=== PATIENT | female | born 2005 | race Caucasian/White ===

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

== ENCOUNTER 2024-08-20 18:47 | Emergency (ER) | payer MEDICAID, SELFPAY ==
[2024-08-20 19:00] VITALS: BP 132/88; PULSE 90; RESP 18; TEMP 36.6; O2SAT 98; BMI 55.6
--- NOTE | 2024-08-20 19:18 | ED_ITS ---
Discharge Plan Disposition Patient Disposition: Home, Self-Care Condition: Good Prescriptions Prescriptions: New sulfamethoxazole-trimethoprim [Bactrim DS] 800-160 mg tablet 1 tab PO Q12H Qty: 20 0RF cephalexin 500 mg capsule 500 mg PO QID 10 Days Qty: 40 0RF mupirocin 2 % ointment 1 applic topical TID 10 Days Qty: 22 0RF Rx Instructions: apply around toenail as prescribed Referrals Follow up/Referrals: Provider,Referral, MD [Primary Care Provider] - See instructions Activity Restrictions/Add. Instructions Additional Instructions/Restrictions: Soak foot in warm water and epson salt 3-4 times daily Use topical ointment as prescribed Take oral antibiotics as prescribed Follow up with your Family Doctor and/or Podiatry for furhter evaluation and treatment Clinical Impressions Clinical Impression: Paronychia Instructions Patient Instructions: Trimethoprim/Sulfamethoxazole (Alternative Therapy), Cephalexin, DI for Paronychia, Paronychia Print Language Print Language: Ukrainian Discharge ED Provider: Chantal Ray [facility] [place] HPI General Stated complaint: left index toe red and swollen,painful Mode of Arrival: Ambulatory Source of Information: Patient Limitations: No Limitations Time Seen by Provider: 08/20/24 19:19 Description of Symptoms (Recalled from Triage Doc. by RN): PATIENT C/O REDNESS AND SWELLING TO LEFT SECOND TOE X 2 DAYS HEENT Symptoms (Recalled from RN notes): No Resp Symptoms (Recalled from RN notes): No Skin Symptoms (Recalled from RN notes): Yes MS Symptoms (Recalled from RN notes): No Functional Status (Recalled from RN notes): WNL History of Present Illness Provider Complaint: Patient states that she has been having redness and swelling around the nail on her left second toe States today she noticed the redness was starting to spread down her toe and she was concerned with infection so she came in to get it checked Related Data Previous Rx's ?Medication ?Instructions ?Recorded cephalexin 500 mg capsule 500 mg PO QID 10 days #40 caps 08/20/24 mupirocin 2 % topical ointment 1 applic topical TID 10 days #22 08/20/24 grams sulfamethoxazole 800 1 tab PO Q12H #20 tabs 08/20/24 mg-trimethoprim 160 mg tablet (Bactrim DS) Allergies Allergy/AdvReac Type Severity Reaction Status Date / Time No Known Allergies Allergy Verified 12/16/20 17:58 Worker's Comp Is this a Worker's Comp case?: No [facility] Disclaimer: The information contained in this section may have been updated after the patient was seen, as this information can be updated by other users. Social History Smoking Status: Current every day smoker tobacco type: e-cigarettes second hand exposure: No alcohol intake: never current occupational status: student Travel in the last 8 weeks: None ROS Obtained: Yes All systems reviewed & no additional complaints except as documented and Yes Systems reviewed as appropriate & no additional complaints except as documented Constitutional Constitutional: Reports system reviewed and no additional complaints, except as documented and Reports as per HPI Cardiovascular Cardiovascular: Reports system reviewed and no additional complaints, except as documented and Reports as per HPI Respiratory Respiratory: Reports system reviewed and no additional complaints, except as documented and Reports as per HPI Gastrointestinal Gastrointestingal: Reports system reviewed and no additional complaints, except as documented and as per HPI Musculoskeletal Musculoskeletal: Reports system reviewed and no additional complaints, except as documented and Reports as per HPI Integumentary/Breasts Skin/Breast: Reports system reviewed and no additional complaints, except as documented, Reports as per HPI and Reports other (redness and swelling around toenail on left second toe) Physical Exam General General appearance: alert and in no apparent distress ENT ENT exam: Present mucous membranes moist Chest Chest inspection: Present normal inspection and symmetric chest wall rise Respiratory Respiratory exam: Present normal lung sounds bilaterally; Absent respiratory distress or wheezes Cardiovascular Cardiovascular exam: Present regular rate, normal rhythm and normal heart sounds Expanded Lower Extremity Exam Left: Foot/toe exam: Present erythema Top foot image: 2 1. redness noted around toenail appears like infected paronychia with redness starting down toe, culture obtained and sent to lab Neurological Exam Neurological exam: Present alert, oriented X3 and normal gait Medical Decision Making Medical Records Screening: Per USPSTF and CDC recommendations, given the prevalence of disease in our region, it is our hospital?s policy to screen for HIV and viral Hepatitis for all patients aged 18 and over and those with ongoing risk factors. Freddy Inquiry Pt receiving controlled substance: No Freddy was queried for this patient: No Vital Signs: 08/20/24 19:00 Temperature 97.9 F Temperature Source Oral Pulse Rate [Left Brachial] 90 Respiratory Rate 18 Blood Pressure [Left Arm] 132/88 Blood Pressure Mean [Left Arm] 102 Blood Pressure Source [Left Arm] Automatic Cuff Blood Pressure Position [Left Arm] Sitting 02 Sat by Pulse Oximetry 98 Oxygen Delivery Method Room Air
[2024-08-20 19:31] VITALS: BP 132/88; PULSE 90; RESP 18; TEMP 36.6; O2SAT 98
== END 2024-08-20 19:33 | disposition home or self-care (01) ==
PROVIDERS: Emergency Provider Nurse Practitioner
DX: L03.032 Cellulitis of left toe (principal); M79.675 Pain in left toe(s); R22.42 Localized swelling, mass and lump, left lower limb
CPT/HCPCS: 87070; 87077; 87186; 87205; 99212; G0381

== ENCOUNTER 2025-03-27 11:04 | Outpatient (CLI) | payer MEDICAID, SELFPAY ==
[2025-03-27 11:16] LABS: Lyme Ab IgM CIA ND; Lyme IgG CIA ND
--- OUTSIDE RECORDS SUMMARY | 2025-03-27 13:08 | XMS_ITS | Clinical Summary ---
Author Organization [facility] Address [address] [place] [address] Care Team Providers Care Senior Receptionist Name Role Phone Manjinder Banda MD Primary Care Provider Allergies No known active allergies Medications No known medications Active Problems Problem Noted Date Diagnosed Date Body mass index, pediatric, greater than or equal to 95th percentile for age 0704/25/2024 Other instability, right ankle 02/02/2024 Other synovitis and tenosynovitis, right ankle a nd foot 02/02/2024 Spontaneous rupture of flexor tendons, right low er leg 01/24/2024 Other instability, left ankle 01/09/2024 Myopia, bilateral 07/13/2023 Regular astigmatism, bilateral 07/13/2023 Irregular menstruation, unspecified 05/19/2023 Polycystic ovarian syndrome 05/19/2023 Lactose intolerance 05/04/2020 Attention deficit hyperactiv ity disorder, 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 Insomnia 07/31/2018 Anxiety 12/20/2016 Depressive disorder 12/20/2016 Dysmenorrhea 12/20/2016 Family History Medical History Relation Name Comments No Known Problems Brother Drug abuse Father Cancer Maternal Grandfather Skin Diabetes Maternal Grandfather Heart defect Maternal Grandfather Cancer Maternal Grandmother Ovarian , cervical, skin, lung Cervical cancer Maternal Grandmother Ovarian cancer Maternal Grandmother No Known Problems Mother Cancer Paternal Grandfather Skin Breast cancer Paternal Grandmother Cancer Paternal Grandmother Breast, bladder, skin, ovarian Diabetes Paternal Grandmother Ovarian cancer Paternal Grandmother Relation Name Status Comments Brother Alive Father Maternal Grandfather Alive Maternal Grandmother Alive Mother Alive Paternal Grandfather Alive Paternal Grandmother Alive Social History Tobacco Use Types Packs/Day Years Used Date Smoking Tobacco: Never Smokeless Tobacco: Current Tobacco Cessation:Ready to Q uit: Not Asked; Counseling Given: Not Answered Alcohol Use Standard Drinks/Week Comments Yes 0 (1 standard drink = 0.6 oz pur e alcohol) 3 drinks per month PHQ-2 Answer Date Recorded Patient Health Questionnaire-2 Score 0 04/25/2024 Comments No Sex and Gender Information Value Date Recorded Sex Assigned at Not on file Legal Sex Female 6:19 PM EDT Gender Identity Not on file Sexual Orientation Not on file Last Filed Vital Signs Vital Sign Reading Time Taken Comments Blood Pressure 124/80 04/25/2024 3:33 PM EDT Pulse 100 04/25/2024 3:33 PM EDT Temperature 36.4 C (97.5 F) 04/25/2024 3:33 PM EDT Respiratory Rate 14 04/25/2024 3:33 PM EDT Oxygen Saturation 96% 04/25/2024 3:33 PM EDT Inhaled Oxygen Concentration - - Weight 142 kg (312 lb 9.8 oz) 04/25/2024 3:33 PM EDT Height 172.7 cm (5' 8 ) 04/25/2024 3:33 PM EDT Body Mass Index 47.53 04/25/2024 3:33 PM EDT Plan of Treatment Health Maintenance Due Date Last Done Comments [facility]-HIV Screening 2004 [facility]-Hepatitis C Screening 2004 [facility]-Infant/Child/Adol SDOH Screenings 2004 [facility]- SDOH Screenings 2022 [facility]-Adult SDOH Screenings 2022 [id number] Vaccine ( season) 2024 06/18/2021, 04/16/2021 [facility]-Depression Screening 04/25/2025 04/25/2024 [facility]-DTaP,Tdap,and Td Vaccines (7 - Td or Tdap) 05/08/2025 05/08/2015, 05/19/2008, 06/07/2006, Additional history exists [facility]-Influenza Vaccine (Season Ended) 2025 01/21/2022 [facility]-Zoster Vaccines (1 of 2) 2054 05/19/2008, 05/19/2008, 06/07/2006 [facility]-Hepatitis B Vaccines Completed 005, 2004, 2004 [facility]-HIB Vaccines Completed 05/04/2005, , 2004, Additional history exists [facility]-Pneumococcal Vaccine: Pediatrics (0 to 5 Years) and At-Risk Patients (6 to 49 Years) Completed 05/04/2005, 2004, 2004, Additional history exists [facility]-Hepatitis A Vaccines Completed 008, 01/15/2007, 06/07/2006 [facility]-IPV Vaccines Completed 05/19/2008, , 2004, Additional history exists [facility]-Varicella Vaccines Completed 8, 05/19/2008, 06/07/2006 HPV Vaccines Completed 06/03/2022, 05/2022, 05/18/2020 [facility]-Obesity Intervention Completed 04/25/2024 [facility]-Rotavirus Vaccines Aged Out No lo nger eligible based on patient's age to complete this topic Insurance [employer] MEDICAID Care Teams Senior Receptionist Relationship Specialty Start Date End Date Manjinder Banda MD [id number] [facility] [facility] [address] [place] [address] PCP - General 02/26/21
== END 2025-03-27 23:59 | disposition home or self-care (01) ==
LOC: LAB 11:06
PROVIDERS: Visit Provider Nurse Practitioner
DX: Z04.89 Encounter for examination and observation for other specified reasons (principal)
CPT/HCPCS: 36415; 86618